=== PATIENT | female | born 1965 | race Hispanic/Latino ===

== ENCOUNTER → 2020-05-02 | Outpatient (CLI) | payer OTHER | END | disposition home or self-care (01) | LOC: OIH 09:47 | PROVIDERS: ATTEND Family Medicine | DX: M54.9 Dorsalgia, unspecified (principal); M47.9 Spondylosis, unspecified; M79.606 Pain in leg, unspecified | CPT/HCPCS: 72100 ==

== ENCOUNTER → 2020-06-12 | Outpatient (CLI) | payer OTHER | END | disposition home or self-care (01) | LOC: OIH 08:56 | PROVIDERS: ATTEND Family Medicine | DX: M25.561 Pain in right knee (principal) | CPT/HCPCS: 73560 ==

== ENCOUNTER → 2022-11-28 | Outpatient (CLI) | payer OTHER | END | disposition home or self-care (01) | LOC: SHCH 08:16 | PROVIDERS: ATTEND Internal Medicine Cardiovascular Disease | DX: I11.9 Hypertensive heart disease without heart failure (principal); E78.5 Hyperlipidemia, unspecified; Z95.4 Presence of other heart-valve replacement | CPT/HCPCS: 93306 ==

== ENCOUNTER → 2024-03-10 | Outpatient (CLI) | payer OTHER, MEDICARE ==
--- NOTE | 2024-03-13 12:47 | HMCSR ---
APPROVED REPORT EXAM: Two-dimensional and M-mode echocardiogram with Doppler and color Doppler. INDICATION ICD: Aortic valve disorders I35.0 Murmur Surgery/Intervention Valve Replacement: Type: TAVR Date: 2021 RISK FACTORS Hypertension Hyperlipidemia 2D Dimensions RVDd3.8 cmLVEF(%)60.2 (>50%)LVED Vol(simp.)119.0 mL IVSd1.0 (0.7-1.1cm)FS(%)32 %LVES Vol(simp.)51.0 mL LVDd4.8 (3.8-5.6cm)LA (2D)3.8 (1.6-4.0cm)LVEF(%, simp.)57 % PWd1.0 (0.7-1.1cm)Ao Root(2D)3.2 (2.0-3.7cm)LA ESV INDEX (BP)28.29 mL/m2 LVDs3.3 (2.5-4.0cm)IVC diam1.9 cm Deformation Strain Apical 4-15.8 % Apical 2-17.9 % Apical 3-15.3 % Global Strain-16.4 % M-Mode Dimensions EPSS1.0 cm Aortic Valve AoV Vmax3.2 m/Fabrice Peak GR39.8 mmHgLVOT Vmax1.2 m/s AoV VTI0.7 mAo Mean GR20.3 mmHgLVOT VTI0.31 m Mitral Valve MV E Vmax78.9 cm/sDECEL Wyns881 ms MV A Qwca411.0 cm/sP 1/2 T81 ms E/A ratio0.7MVA (PHT)2.7 cm2 MR Max PG97 mmHg TDI E/E' Vgohzo33.1E/E' Pprdkkq13.5 Pulmonary Valve PV Vmax1.0 m/sPV VTI0.21 mPV Mean GR2 mmHg PV Peak GR3.6 mmHgPI End Radha. Herber 0.8 cm/s Tricuspid Valve TR Vmax2.9 m/sRAP (EST) 8 qjXrQNCL28.5 mmHg TR Peak GR33.5 mmHg Left Ventricle Left ventricular cavity size is normal. There is normal LV segmental wall motion. There is normal lef t ventricular wall thickness. LVEF is 55-60%. Stage II, diastolic dysfunction. Right Ventricle The right ventricle is normal size. The right ventricular systolic function is normal. Atria The left atrium size is normal. The right atrium size is normal. Aortic Valve Status post TAVR. No aortic regurgitation is present. AV Dimensionless Index is 0.56 Calculated aorti c valve maximum pressure gradient of 40 mmHg and mean pressure gradient of 21 mmHg. Mitral Valve Mitral valve leaflets are sclerotic but open well. Mitral regurgitation is trace to mild. There is no mitral valve stenosis. Tricuspid Valve The tricuspid valve leaflets appear normal. There is mild tricuspid regurgitation. Right ventricular systolic pressure is estimated at 40-50 mmHg. Pulmonic Valve The pulmonic valve leaflets are thin and pliable; valve motion is normal. There is trace pulmonic yash vular regurgitation. Great Vessels Aortic root is within normal limits. Ascending aorta measures 4.0cm in caliber. IVC is dilated and collapses >50% with inspiration. Pericardium No pericardial effusion. Conclusion LVEF is 55-60%. Stage II, diastolic dysfunction. There is normal LV segmental wall motion. Status post TAVR. Calculated aortic valve maximum pressure gradient of 40 mmHg and mean pressure gradient of 21 mmHg. No aortic regurgitation is present. There is mild tricuspid regurgitation. Right ventricular systolic pressure is estimated at 40-50 mmHg. Ascending aorta measures 4.0cm in caliber.
== END | disposition home or self-care (01) ==
LOC: SHCH 08:59
PROVIDERS: ATTEND Internal Medicine Cardiovascular Disease
DX: I08.1 Rheumatic disorders of both mitral and tricuspid valves (principal); I11.9 Hypertensive heart disease without heart failure; R01.1 Cardiac murmur, unspecified; E78.5 Hyperlipidemia, unspecified; Z95.2 Presence of prosthetic heart valve
CPT/HCPCS: 93306; 93356